=== PATIENT | female | born 1985 | race Caucasian/White ===

== ENCOUNTER 2021-04-02 16:59 | Inpatient (IN) ==
[2021-04-02 18:36] LABS: Urine Appearance Cloudy; Urine Bilirubin Negative (Negative); Urine Blood 1+ (Negative); Urine Color Yellow; Urine Glucose Negative (Negative); Urine Ketones Trace (Negative); Urine Nitrite Negative (Negative); Urine Protein 1+(30 mg/dL) (Negative); Urine Specific Gravity 1.027 (1.002-1.030); Urine Urobilinogen Negative (Negative)
[2021-04-02 18:55] LABS: Urine Bacteria Absent (Absent); Urine Red Blood Cell 3+(>10/hpf) (Absent); Urine Squamous Epithelial Cell Present (Absent); Urine White Blood Cell Trace(0-5/hpf) (Absent)
[2021-04-02 19:09] LABS: Urine Benzodiazepine Screen None Detected (None Detect); Urine Cannabinoids Screen None Detected (None Detect); Urine Opiates Screen None Detected (None Detect)
[2021-04-02 19:30] LABS: ABS Lymphocytes 1.7 10^3/ul (1.0-4.8); ABS Monocytes 0.9 10^3/ul (0-0.8); ABS Neutrophils 6.6 10^3/ul (1.5-7.7); Eosinophil % 0.4 %; Hematocrit 41 % (35-47); Hemoglobin 13.5 g/dL (12.0-16.0); Lymphocyte % 18.6 %; Mean Corpuscular HGB Conc 33 g/dL (31-36); Mean Corpuscular Hemoglobin 29 pg (27-31); Mean Corpuscular Volume 88 fL (80-97); Mean Platelet Volume 7.4 fL (7.4-10.4); Platelet Count 291 10^3/uL (150-450); Red Blood Count 4.58 10^6 /uL (3.70-4.87); Red Cell Distribution Width 13 % (10-15); White Blood Count 9.3 10^3/uL (3.5-10.8)
[2021-04-02 19:47] LABS: ALT 16 U/L (7-52); AST 18 U/L (13-39); Albumin 4.2 g/dL (3.2-5.2); Alkaline Phosphatase 30 U/L (35-149); Anion Gap 7 mmol/L (2-11); Blood Urea Nitrogen 18 mg/dL (6-24); CO2 Carbon Dioxide 27 mmol/L (22-32); Calcium 8.9 mg/dL (8.6-10.3); Chloride 103 mmol/L (101-111); EGFR African American 103.6 (>60); EGFR Non-African American 85.6 (>60); Globulin 2.1 g/dL (2-4); Glucose 122 mg/dL (70-100); Potassium 3.1 mmol/L (3.5-5.0); Sodium 137 mmol/L (135-145); Total Protein 6.3 g/dL (6.4-8.9)
[2021-04-02 20:17] LABS: Acetaminophen < 15 mcg/mL; Alcohol, S 10 mg/dL (<10); Salicylate < 2.50 mg/dL (<30)
[2021-04-02 20:32] LABS: TSH Ultra Thyroid Stim Horm 1.16 mcIU/mL (0.34-5.60)
[2021-04-02] MEDS ORDERED: Al Hydrox/Mg Hydrox/Simet LIQ 30 ML UDC PO PRN (22:54)
[2021-04-03] MEDS: CMCS: OMEGA-3 FATTY ACID 1000 mg(NF) PO SCH (09:46)
[2021-04-03] MEDS: Vitamin THERAPEUTIC TAB PO SCH (09:46)
[2021-04-03 14:47] LABS: HCG Pregnancy < 0.60 mIU/mL
[2021-04-04] MEDS: Vitamin THERAPEUTIC TAB PO SCH (09:11)
[2021-04-04] MEDS: CMCS: OMEGA-3 FATTY ACID 1000 mg(NF) PO SCH (09:11)
[2021-04-05] MEDS: Vitamin THERAPEUTIC TAB PO SCH (08:02)
[2021-04-05] MEDS: CMCS: OMEGA-3 FATTY ACID 1000 mg(NF) PO SCH (08:02)
[2021-04-06] MEDS: CMCS: OMEGA-3 FATTY ACID 1000 mg(NF) PO SCH (08:16)
[2021-04-06] MEDS: Vitamin THERAPEUTIC TAB PO SCH (08:16)
[2021-04-06 08:36] LABS: HDL Cholesterol 74.4 mg/dL
[2021-04-06 10:35] VITALS: BP 128/81
== END 2021-04-06 13:15 | disposition home or self-care (01) | DRG 753 ==
LOC: ED 16:59 → BSU 22:50
PROVIDERS: ADMIT Psychiatry & Neurology Psychiatry; ATTEND Psychiatry & Neurology Psychiatry

== ENCOUNTER 2021-04-07 04:11 | Inpatient (IN) ==
[2021-04-07] MEDS ORDERED: NS 0.9% 1000 ml BAG 1,000 ML IV ONE (05:00)
[2021-04-07] MEDS ORDERED: D5W IV ONE ×3 (05:30→12:00)
[2021-04-07] MEDS ORDERED: ACETYLCYSTEINE IV ONE ×3 (05:30→12:00)
[2021-04-07 05:35] LABS: Hematocrit 44 % (35-47); Hemoglobin 14.4 g/dL (12.0-16.0); Mean Corpuscular HGB Conc 33 g/dL (31-36); Mean Corpuscular Hemoglobin 30 pg (27-31); Mean Corpuscular Volume 90 fL (80-97); Mean Platelet Volume 7.4 fL (7.4-10.4); Platelet Count 318 10^3/uL (150-450); Red Blood Count 4.81 10^6 /uL (3.70-4.87); Red Cell Distribution Width 13 % (10-15); White Blood Count 21.2 10^3/uL (3.5-10.8)
[2021-04-07] MEDS ORDERED: Ondansetron 4 mg VIAL 2 MG/ML 2 ml VIAL IV ONE (05:43)
[2021-04-07 05:51] LABS: Alcohol, S < 13 mg/dL (<10); Salicylate < 2.50 mg/dL (<30)
[2021-04-07 05:52] LABS: ALT 21 U/L (7-52); AST 19 U/L (13-39); Albumin 4.4 g/dL (3.2-5.2); Albumin/Globulin Ratio 1.8 (1-3); Alkaline Phosphatase 35 U/L (35-149); Anion Gap 10 mmol/L (2-11); Blood Urea Nitrogen 14 mg/dL (6-24); CO2 Carbon Dioxide 26 mmol/L (22-32); Calcium 8.7 mg/dL (8.6-10.3); Chloride 100 mmol/L (101-111); EGFR African American 99.1 (>60); EGFR Non-African American 81.9 (>60); Globulin 2.5 g/dL (2-4); Glucose 192 mg/dL (70-100); Potassium 3.4 mmol/L (3.5-5.0); Sodium 136 mmol/L (135-145); Total Protein 6.9 g/dL (6.4-8.9)
[2021-04-07 05:57] LABS: ABS Basophils 0.1 10^3/ul (0-0.2); ABS Lymphocytes 0.4 10^3/ul (1.0-4.8); ABS Monocytes 1.4 10^3/ul (0-0.8); ABS Neutrophils 19.2 10^3/ul (1.5-7.7); Eosinophil % 0.1 %
[2021-04-07 05:58] LABS: HCG Pregnancy < 0.60 mIU/mL
[2021-04-07] MEDS ORDERED: Prochlorperazine 5 mg/ml 2 ml VIAL (10 mg) IV ONE (06:11)
[2021-04-07 06:23] LABS: Acetaminophen 141 mcg/mL
[2021-04-07] MEDS ORDERED: NS 0.9% 1000 ml BAG 1,000 ML IV SCH (07:30)
[2021-04-07 08:11] LABS: Urine Appearance Cloudy; Urine Bilirubin Negative (Negative); Urine Blood 1+ (Negative); Urine Color Yellow; Urine Glucose 3+(>=500 mg/dL) (Negative); Urine Ketones 2+ (Negative); Urine Nitrite Negative (Negative); Urine Protein Negative (Negative); Urine Specific Gravity 1.017 (1.002-1.030); Urine Urobilinogen Negative (Negative)
[2021-04-07 08:18] LABS: Urine Bacteria Absent (Absent); Urine Red Blood Cell 3+(>10/hpf) (Absent); Urine Squamous Epithelial Cell Present (Absent); Urine White Blood Cell Trace(0-5/hpf) (Absent)
[2021-04-07 08:26] LABS: Urine Benzodiazepine Screen None Detected (None Detect); Urine Cannabinoids Screen None Detected (None Detect); Urine Opiates Screen Presumptive Positive (None Detect)
[2021-04-07] MEDS ORDERED: Lactated Ringers 1000 ml BAG 1,000 ML IV SCH (09:00)
[2021-04-07 09:06] LABS: Magnesium 2.1 mg/dL (1.9-2.7); Phosphorus 3.8 mg/dL (2.5-5.0)
[2021-04-07] MEDS: KCL 20 MEQ/100 ML IVPREMIX 20 MEQ/100 ML BAG IV SCH ×4 (12:07→22:49)
[2021-04-07 12:51] LABS: Hematocrit 39 % (35-47); Mean Corpuscular HGB Conc 33 g/dL (31-36); Mean Corpuscular Hemoglobin 30 pg (27-31); Mean Corpuscular Volume 89 fL (80-97); Mean Platelet Volume 7.4 fL (7.4-10.4); Platelet Count 307 10^3/uL (150-450); Red Blood Count 4.41 10^6 /uL (3.70-4.87); Red Cell Distribution Width 13 % (10-15); White Blood Count 18.1 10^3/uL (3.5-10.8)
[2021-04-07] MEDS: Enoxaparin 40 MG/0.4 ML SYR SUBCUT SCH (12:54)
[2021-04-07 13:06] LABS: Calcium 8.2 mg/dL (8.6-10.3); EGFR African American 133.5 (>60); EGFR Non-African American 110.4 (>60); INR 1.41 (0.86-1.15); Phosphorus 3.2 mg/dL (2.5-5.0)
[2021-04-07 21:14] LABS: Hematocrit 36 % (35-47); Hemoglobin 12.5 g/dL (12.0-16.0); Mean Corpuscular HGB Conc 35 g/dL (31-36); Mean Corpuscular Hemoglobin 30 pg (27-31); Mean Corpuscular Volume 88 fL (80-97); Mean Platelet Volume 7.4 fL (7.4-10.4); Platelet Count 263 10^3/uL (150-450); Red Blood Count 4.14 10^6 /uL (3.70-4.87); Red Cell Distribution Width 13 % (10-15); White Blood Count 13.9 10^3/uL (3.5-10.8)
[2021-04-07 21:34] LABS: Albumin 3.6 g/dL (3.2-5.2); Albumin/Globulin Ratio 1.7 (1-3); Calcium 8.3 mg/dL (8.6-10.3); EGFR African American 133.5 (>60); EGFR Non-African American 110.4 (>60); Globulin 2.1 g/dL (2-4); Potassium 3.5 mmol/L (3.5-5.0); Total Bilirubin 0.4 mg/dL (0.2-1.0); Total Protein 5.7 g/dL (6.4-8.9)
[2021-04-08] MEDS: KCL 20 MEQ/100 ML IVPREMIX 20 MEQ/100 ML BAG IV SCH ×2 (03:35→07:40)
[2021-04-08 03:41] LABS: Hematocrit 39 % (35-47); Hemoglobin 12.8 g/dL (12.0-16.0); Mean Corpuscular HGB Conc 33 g/dL (31-36); Mean Corpuscular Hemoglobin 30 pg (27-31); Mean Corpuscular Volume 90 fL (80-97); Mean Platelet Volume 7.2 fL (7.4-10.4); Platelet Count 249 10^3/uL (150-450); Red Blood Count 4.33 10^6 /uL (3.70-4.87); Red Cell Distribution Width 13 % (10-15); White Blood Count 9.1 10^3/uL (3.5-10.8)
[2021-04-08 04:00] LABS: Albumin 3.7 g/dL (3.2-5.2); Anion Gap 5 mmol/L (2-11); CO2 Carbon Dioxide 24 mmol/L (22-32); Chloride 106 mmol/L (101-111); Potassium 3.6 mmol/L (3.5-5.0); Sodium 135 mmol/L (135-145)
[2021-04-08 04:05] LABS: Acetaminophen < 15 mcg/mL
[2021-04-08 04:06] LABS: ALT 18 U/L (7-52); AST 18 U/L (13-39); Albumin/Globulin Ratio 1.9 (1-3); Alkaline Phosphatase 26 U/L (35-149); Blood Urea Nitrogen 5 mg/dL (6-24); EGFR Non-African American 138.8 (>60); Glucose 114 mg/dL (70-100); Phosphorus 2.6 mg/dL (2.5-5.0); Total Protein 5.7 g/dL (6.4-8.9)
[2021-04-08] MEDS ORDERED: Potassium Chlor 20 meq TAB.ER PO ONE (07:11)
[2021-04-08] MEDS: Enoxaparin 40 MG/0.4 ML SYR SUBCUT SCH (10:56)
[2021-04-09] MEDS: Multivitamins/Minerals TAB PO SCH (12:06)
[2021-04-09] MEDS: Enoxaparin 40 MG/0.4 ML SYR SUBCUT SCH (12:08)
[2021-04-09] MEDS: Dextran 70/Hypromellose Tears Eye Drops 15 ml BTL (for Artificials Tears) BOTH EYES PRN ×2 (16:23→19:51)
[2021-04-10] MEDS: Multivitamins/Minerals TAB PO SCH (07:20)
[2021-04-10] MEDS: Dextran 70/Hypromellose Tears Eye Drops 15 ml BTL (for Artificials Tears) BOTH EYES PRN (07:22)
[2021-04-10] MEDS ORDERED: OLANzapine 5 mg TAB*ODT PO PRN (13:19)
[2021-04-11] MEDS: Multivitamins/Minerals TAB PO SCH (08:47)
[2021-04-11] MEDS: Hemorrhoidal OINT 1 TUBE PR PRN (11:42)
[2021-04-11] MEDS: CMCS:OMEGA-3 FATTY ACID 1000 mg(NF) PO SCH (15:31)
[2021-04-12] MEDS: CMCS:OMEGA-3 FATTY ACID 1000 mg(NF) PO SCH (08:18)
[2021-04-12] MEDS: Multivitamins/Minerals TAB PO SCH (08:18)
[2021-04-13] MEDS: CMCS:OMEGA-3 FATTY ACID 1000 mg(NF) PO SCH (08:03)
[2021-04-13] MEDS: Multivitamins/Minerals TAB PO SCH (08:03)
[2021-04-13] MEDS: OLANzapine 5 mg TAB*ODT PO SCH (21:27)
[2021-04-14] MEDS: CMCS:OMEGA-3 FATTY ACID 1000 mg(NF) PO SCH (08:19)
[2021-04-14] MEDS: Multivitamins/Minerals TAB PO SCH (08:19)
[2021-04-14] MEDS: OLANzapine 5 mg TAB*ODT PO SCH (21:11)
[2021-04-15] MEDS: CMCS:OMEGA-3 FATTY ACID 1000 mg(NF) PO SCH (07:56)
[2021-04-15] MEDS: Multivitamins/Minerals TAB PO SCH (07:56)
[2021-04-15] MEDS: OLANzapine 5 mg TAB*ODT PO SCH (22:33)
[2021-04-16] MEDS: Multivitamins/Minerals TAB PO SCH (09:09)
[2021-04-16] MEDS: CMCS:OMEGA-3 FATTY ACID 1000 mg(NF) PO SCH (09:09)
[2021-04-16] MEDS: OLANzapine 5 mg TAB*ODT PO SCH (20:45)
[2021-04-17] MEDS: CMCS:OMEGA-3 FATTY ACID 1000 mg(NF) PO SCH (08:50)
[2021-04-17] MEDS: Multivitamins/Minerals TAB PO SCH (08:50)
[2021-04-17] MEDS: OLANzapine 5 mg TAB*ODT PO SCH (20:17)
[2021-04-18] MEDS: Multivitamins/Minerals TAB PO SCH (09:02)
[2021-04-18] MEDS: CMCS:OMEGA-3 FATTY ACID 1000 mg(NF) PO SCH (09:02)
[2021-04-18] MEDS: OLANzapine 5 mg TAB*ODT PO SCH (21:40)
[2021-04-19] MEDS: Multivitamins/Minerals TAB PO SCH (09:17)
[2021-04-19] MEDS: CMCS:OMEGA-3 FATTY ACID 1000 mg(NF) PO SCH (09:18)
[2021-04-19] MEDS: OLANzapine 5 mg TAB*ODT PO SCH (20:56)
[2021-04-20] MEDS: Multivitamins/Minerals TAB PO SCH (10:43)
[2021-04-20] MEDS: CMCS:OMEGA-3 FATTY ACID 1000 mg(NF) PO SCH (10:44)
[2021-04-20] MEDS: OLANzapine 5 mg TAB*ODT PO SCH (21:52)
[2021-04-21] MEDS: CMCS:OMEGA-3 FATTY ACID 1000 mg(NF) PO SCH (10:50)
[2021-04-21] MEDS: Multivitamins/Minerals TAB PO SCH (10:50)
[2021-04-21 18:21] VITALS: BP 116/62
[2021-04-21] MEDS: OLANzapine 5 mg TAB*ODT PO SCH (20:33)
[2021-04-22] MEDS: Multivitamins/Minerals TAB PO SCH (09:21)
[2021-04-22] MEDS: CMCS:OMEGA-3 FATTY ACID 1000 mg(NF) PO SCH (09:21)
[2021-04-22] MEDS: OLANzapine 5 mg TAB*ODT PO SCH (20:51)
[2021-04-23] MEDS: CMCS:OMEGA-3 FATTY ACID 1000 mg(NF) PO SCH (08:55)
[2021-04-23] MEDS: Multivitamins/Minerals TAB PO SCH (08:55)
[2021-04-23] MEDS: Hemorrhoidal OINT 1 TUBE PR PRN (08:56)
== END 2021-04-23 12:18 | disposition home or self-care (01) | DRG 751 ==
LOC: ED 04:11 → ICU 09:57 → BSU 04-08 12:56
PROVIDERS: ADMIT Internal Medicine; ATTEND Internal Medicine